=== PATIENT | female | born 1945 | race Two or more races ===

== ENCOUNTER 2019-03-10 07:21 | Outpatient (CLI) | payer OTHER ==
[~2019-03-10 07:21] MED LIST: MEDROL4 MG PO; TRAMADOL HCL-AP1 TAB PO
[2019-03-17] MEDS ORDERED: OCUVITE EYE HE1 EACH PO (13:51)
[2019-03-17] MEDS ORDERED: COLAGEN PO (13:52)
== END 2019-03-10 07:49 | disposition home or self-care (01) ==
LOC: LAB 07:21 → EDBD 07:21 → LAB 07:49
DX: D64.89 Other specified anemias (principal); E88.89 Other specified metabolic disorders; D68.8 Other specified coagulation defects; N39.0 Urinary tract infection, site not specified; Z22.322 Carrier or suspected carrier of Methicillin resistant Staphylococcus aureus; Z76.89 Persons encountering health services in other specified circumstances; I49.8 Other specified cardiac arrhythmias

== ENCOUNTER 2019-03-20 05:44 | Day surgery (SDC) | payer OTHER ==
[~2019-03-20 05:44] MED LIST changes: +COLAGEN PO; +OCUVITE EYE HE1 EACH PO
== END 2019-03-20 13:15 | disposition home or self-care (01) ==
LOC: CIR.AMB 05:44
DX: M23.321 Other meniscus derangements, posterior horn of medial meniscus, right knee (principal); M23.341 Other meniscus derangements, anterior horn of lateral meniscus, right knee; M23.8X1 Other internal derangements of right knee; M22.11 Recurrent subluxation of patella, right knee; M94.261 Chondromalacia, right knee; M65.861 Other synovitis and tenosynovitis, right lower leg

== ENCOUNTER 2019-03-31 07:21 | Outpatient (CLI) | payer OTHER | END 2019-03-31 07:36 | disposition home or self-care (01) | LOC: LAB 07:21 | DX: D64.89 Other specified anemias (principal); M06.4 Inflammatory polyarthropathy ==

== ENCOUNTER 2019-04-13 08:33 | Outpatient (CLI) | payer OTHER | END 2019-04-13 09:44 | disposition home or self-care (01) | LOC: LAB 08:33 | DX: D64.89 Other specified anemias (principal); M06.4 Inflammatory polyarthropathy ==

== ENCOUNTER 2023-02-25 12:04 | Outpatient (CLI) | payer OTHER ==
[2023-02-25] MEDS ORDERED: PLAVIX75 MG (21:39)
[2023-02-25] MEDS ORDERED: ATORVASTATIN CA10 MG PO (21:39)
[2023-02-25] MEDS ORDERED: INDERAL XL80 MG PO (21:40)
== END 2023-02-25 12:11 | disposition home or self-care (01) ==
LOC: MRI 12:04
DX: I67.89 Other cerebrovascular disease (principal); I63.89 Other cerebral infarction; G96.191 Perineural cyst
CPT/HCPCS: 70540; 70551

== ENCOUNTER 2023-02-25 21:20 | Inpatient (IN) | payer OTHER ==
[~2023-02-25] VITALS: Ht 157.5 cm; Wt 51.7 kg
[2023-02-25] MEDS ORDERED: ATORVASTATIN CA10 MG PO (21:39)
[2023-02-25] MEDS ORDERED: PLAVIX75 MG (21:39)
[2023-02-25] MEDS ORDERED: INDERAL XL80 MG PO (21:40)
[2023-02-28] MEDS ORDERED: CLOPIDOGREL BIS75 MG PO (13:19)
[2023-02-28] MEDS ORDERED: LOSARTAN-HCTZ1 EACH PO (13:20)
[2023-02-28] MEDS ORDERED: XARELTO10 MG PO (13:20)
[2023-02-28] MEDS ORDERED: PANTOPRAZOLE SO40 MG PO (13:21)
[2023-02-28] MEDS ORDERED: AMLODIPINE BESYL5 MG PO (13:21)
[2023-02-28] MEDS ORDERED: LIPITOR40 MG PO (13:22)
== END 2023-02-28 13:46 | disposition home or self-care (01) | DRG 65 ==
LOC: ER 21:20 → MEDI 02-26 12:05
PROVIDERS: ADMIT Internal Medicine; ATTEND Internal Medicine
PROC: B24BYZZ Ultrasonography of Heart with Aorta using Other Contrast (ICD-10-PCS; principal; 2023-02-26)
PROC: 4A12X4Z Monitoring of Cardiac Electrical Activity, External Approach (ICD-10-PCS; 2023-02-26)
DX: I63.9 Cerebral infarction, unspecified (principal); G81.94 Hemiplegia, unspecified affecting left nondominant side; I99.8 Other disorder of circulatory system; I10 Essential (primary) hypertension; R26.9 Unspecified abnormalities of gait and mobility